=== PATIENT | female | born 1955 | race Caucasian/White ===

== ENCOUNTER 2018-10-03 20:23 | Inpatient (IN) | payer OTHER ==
[2018-10-03] MEDS: SOD CHLORIDE 0.9% 1,000 ML IV (22:54)
[2018-10-03 22:55] LABS: ADD MAN DIFF? NO
[2018-10-03 22:59] LABS: BASOPHILS % 0.4 % (0.0-2.0); EOSINOPHILS % 0.1 % (0.0-7.0); HEMATOCRIT 45.6 % (37.0-47.0); HEMOGLOBIN 14.7 g/dl (12.0-16.0); LYMPHOCYTES # 0.9 10^3/ul (0.8-2.9); LYMPHOCYTES % 8.7 % (15.0-51.0); MEAN CORPUSCULAR HEMOGLOBIN 29.8 pg (29.0-33.0); MEAN CORPUSCULAR HGB CONC 32.2 g/dl (32.0-37.0); MEAN CORPUSCULAR VOLUME 92.3 fl (82.0-101.0); MEAN PLATELET VOLUME 11.3 fl (7.4-10.4); MONOCYTE # 0.3 10^3/ul (0.3-0.9); NEUTROPHIL # 9.1 10^3/ul (1.6-7.5); NEUTROPHILS % 87.5 % (39.0-77.0); PLATELET COUNT 215 10^3/UL (140-415); RED BLOOD COUNT 4.94 10^6/ul (4.20-5.40); RED CELL DISTRIBUTION WIDTH 11.9 % (11.5-14.5)
[2018-10-03 22:59] LABS: WHITE BLOOD COUNT 10.4 10^3/ul (4.8-10.8)
[2018-10-03 23:03] LABS: ADD UMIC YES; UR ASCORBIC ACID 40 mg/dL (NEGATIVE); UR BILIRUBIN (Dip) NEGATIVE (NEGATIVE); UR BLOOD (Dip) 1+ mg/dL (NEGATIVE); UR CLARITY SLIGHTLY CLOUDY (CLEAR); UR COLOR YELLOW (YELLOW); UR GLUCOSE (Dip) NEGATIVE (NEGATIVE); UR KETONES (Dip) TRACE mg/dL (NEGATIVE); UR LEUKOCYTE ESTERASE (Dip) 3+ Leu/ul (NEGATIVE); UR MUCUS FEW /HPF (NONE SEEN); UR NITRITE (Dip) NEGATIVE (NEGATIVE); UR RBC 9 /HPF (0-5); UR SPECIFIC GRAVITY (Dip) 1.021 (1.003-1.030); UR TOTAL PROTEIN (Dip) NEGATIVE (NEGATIVE); UR UROBILINOGEN (Dip) NEGATIVE (NEGATIVE); UR WBC 106 /HPF (0-5)
[2018-10-03 23:16] LABS: ALANINE AMINOTRANSFERASE 25 IU/L (13-69); ALBUMIN 4.5 g/dl (3.3-4.9); ALBUMIN/GLOBULIN RATIO 1.36; ALKALINE PHOSPHATASE 114 IU/L (42-121); ANION GAP 11 (5-13); ASPARTATE AMINO TRANSFERASE 26 IU/L (15-46); BILIRUBIN,INDIRECT 0.3 mg/dl (0-1.1); BILIRUBIN,TOTAL 0.3 mg/dl (0.2-1.3); BLOOD UREA NITROGEN 14 mg/dl (7-20); CALCIUM 9.4 mg/dl (8.4-10.2); CARBON DIOXIDE 26 mmol/L (21-31); CHLORIDE 105 mmol/L (97-110); CREATININE 0.62 mg/dl (0.44-1.00); Estimated GFR > 60 mL/min (>60); GLUCOSE 150 mg/dl (70-220); LIPASE 82 U/L (23-300); POTASSIUM 3.8 mmol/L (3.5-5.1); SODIUM 142 mmol/L (135-144); TOTAL PROTEIN 7.8 g/dl (6.1-8.1)
[2018-10-03 23:27] LABS: TROPONIN-I < 0.012 ng/ml (0.000-0.120)
[2018-10-03] MEDS: CEFTRIAXONE 1 GM/50 ML (PMX) 50 ML IVPB (23:47)
[2018-10-04] MEDS: METOPROLOL 50 MG TAB PO (01:59)
[2018-10-04] MEDS ORDERED: ONDANSETRON 4 MG INJ IV (05:00)
[2018-10-04] MEDS ORDERED: ALBUTEROL/IPRATROPIUM (NEB) 3 ML AMP HHN (05:00)
[2018-10-04] MEDS ORDERED: ACETAMINOPHEN 325 MG TAB PO (05:00)
[2018-10-04] MEDS ORDERED: NACL 0.9% 3 ML SYG IV (05:00)
[2018-10-04] MEDS: LEVOTHYROXINE 112 MCG TAB PO (06:08)
[2018-10-04 06:27] LABS: ADD MAN DIFF? NO
[2018-10-04 06:32] LABS: BASOPHILS % 0.5 % (0.0-2.0); EOSINOPHILS % 0.4 % (0.0-7.0); HEMATOCRIT 42.7 % (37.0-47.0); HEMOGLOBIN 13.6 g/dl (12.0-16.0); LYMPHOCYTES # 1.1 10^3/ul (0.8-2.9); LYMPHOCYTES % 13.2 % (15.0-51.0); MEAN CORPUSCULAR HEMOGLOBIN 29.5 pg (29.0-33.0); MEAN CORPUSCULAR HGB CONC 31.9 g/dl (32.0-37.0); MEAN CORPUSCULAR VOLUME 92.6 fl (82.0-101.0); MEAN PLATELET VOLUME 11.6 fl (7.4-10.4); MONOCYTE # 0.6 10^3/ul (0.3-0.9); MONOCYTES % 7.1 % (0.0-11.0); NEUTROPHIL # 6.7 10^3/ul (1.6-7.5); NEUTROPHILS % 78.4 % (39.0-77.0); PLATELET COUNT 220 10^3/UL (140-415); RED BLOOD COUNT 4.61 10^6/ul (4.20-5.40); RED CELL DISTRIBUTION WIDTH 12.3 % (11.5-14.5)
[2018-10-04 06:32] LABS: WHITE BLOOD COUNT 8.5 10^3/ul (4.8-10.8)
[2018-10-04 07:11] LABS: ALANINE AMINOTRANSFERASE 22 IU/L (13-69); ALBUMIN 3.7 g/dl (3.3-4.9); ALBUMIN/GLOBULIN RATIO 1.23; ALKALINE PHOSPHATASE 97 IU/L (42-121); ANION GAP 8 (5-13); ASPARTATE AMINO TRANSFERASE 24 IU/L (15-46); BILIRUBIN,INDIRECT 0.4 mg/dl (0-1.1); BILIRUBIN,TOTAL 0.4 mg/dl (0.2-1.3); BLOOD UREA NITROGEN 11 mg/dl (7-20); CALCIUM 9.1 mg/dl (8.4-10.2); CARBON DIOXIDE 25 mmol/L (21-31); CHLORIDE 108 mmol/L (97-110); CHOL/HDL RATIO 3.4 RATIO; CHOLESTEROL 157 mg/dl (100-200); CK INDEX 1.1; CK-MB 0.92 ng/ml (0.0-2.4); CREATINE KINASE 82 IU/L (23-200); CREATININE 0.53 mg/dl (0.44-1.00); Estimated GFR > 60 mL/min (>60); GLUCOSE 116 mg/dl (70-220); HDL CHOLESTEROL 46 mg/dl (35-98); LDL CHOLESTEROL,CALCULATED 81 mg/dl; POTASSIUM 3.9 mmol/L (3.5-5.1); SODIUM 141 mmol/L (135-144); TOTAL PROTEIN 6.7 g/dl (6.1-8.1); TRIGLYCERIDES 148 mg/dl (0-149); TROPONIN-I < 0.012 ng/ml (0.000-0.120)
[2018-10-04 07:46] LABS: HEMOGLOBIN A1C 5.4 % (0-5.9)
[2018-10-04] MEDS ORDERED: hydrALAzine 20 MG INJ IV (08:00)
[2018-10-04] MEDS: TRIAMCINOLONE ACET 0.1% 15 GM CR TOP (09:00)
[2018-10-04] MEDS: METOPROLOL (XL) 50 MG TAB PO ×2 (09:10→20:36)
[2018-10-04] MEDS: ENOXAPARIN 40 MG/0.4 ML SYG SC (09:36)
[2018-10-04 11:30] LABS: CREATINE KINASE 81 IU/L (23-200)
[2018-10-04 11:44] LABS: TROPONIN-I < 0.012 ng/ml (0.000-0.120)
[2018-10-04] MEDS: ATORVASTATIN 10 MG TAB PO (20:35)
[2018-10-04] MEDS: ASPIRIN 81 MG TAB PO (20:35)
[2018-10-04] MEDS ORDERED: LOVASTATIN 20 MG PO (21:00)
[2018-10-05] MEDS: LEVOTHYROXINE 112 MCG TAB PO (06:05)
[2018-10-05] MEDS: TRIAMCINOLONE ACET 0.1% 15 GM CR TOP (09:00)
[2018-10-05] MEDS: METOPROLOL (XL) 50 MG TAB PO ×2 (09:34→20:56)
[2018-10-05] MEDS: ENOXAPARIN 40 MG/0.4 ML SYG SC (09:37)
[2018-10-05] MEDS: ALPRAZOLAM 0.25 MG TAB PO (13:41)
[2018-10-05] MEDS: ASPIRIN 81 MG TAB PO (20:56)
[2018-10-05] MEDS: ATORVASTATIN 10 MG TAB PO (20:57)
[2018-10-06] MEDS: LEVOTHYROXINE 112 MCG TAB PO (06:05)
[2018-10-06] MEDS: ENOXAPARIN 40 MG/0.4 ML SYG SC (08:31)
[2018-10-06] MEDS: TRIAMCINOLONE ACET 0.1% 15 GM CR TOP (08:32)
[2018-10-06] MEDS: METOPROLOL (XL) 50 MG TAB PO (08:32)
== END 2018-10-06 15:30 | disposition home or self-care (01) | DRG 71 ==
LOC: PP2 10-04 00:41 → E/R 20:23 → PP2 10-04 00:12
DX: G45.4 Transient global amnesia (principal); N39.0 Urinary tract infection, site not specified; I10 Essential (primary) hypertension; E78.5 Hyperlipidemia, unspecified; E03.9 Hypothyroidism, unspecified; Z87.891 Personal history of nicotine dependence
CPT/HCPCS: 36415; 70450; 70553; 80053; 80061; 81001; 82550; 82553; 83036; 83690; 83735; 84443; 84484; 85025; 87086; 93005; 93306; 93880; 95819; 96361; 96365; 97161; 99285-25